=== PATIENT | female | born 1945 | race Caucasian/White ===

== ENCOUNTER 2019-01-16 15:54 | Emergency (ER) | payer OTHER ==
--- NOTE | 2019-01-16 16:12 | EDPHY ---
H & P Stated Complaint: anxiety, depression Time Seen by Provider: 01/16/19 16:04 HPI/ROS: CHIEF COMPLAINT: Referred to ED from [facility] for depression and anxiety HISTORY OF PRESENT ILLNESS: Patient was referred to the emergency department from [facility] for worsening depression and anxiety. The patient reports that she is under a number of life stressors. She denies any suicidal or homicidal ideation. The patient has been using use bar in trazodone at night but is continuing to have worsening symptoms. She denies any drug use. She does report occasional alcohol consumption. The patient does report that she has been experiencing weight loss secondary to her underlying psychiatric condition. She has been working with a primary care provider for evaluation of a possible medical cause of weight loss which has been unrevealing. The patient denies any fever, cough or congestion. She denies any acute complaints of pain. REVIEW OF SYSTEMS: A comprehensive 10 point review of systems is otherwise negative aside from elements mentioned in the history of present illness. Source: Patient Exam Limitations: No limitations - Personal History Current Tetanus/Diphtheria Vaccine: Yes Current Tetanus Diphtheria and Acellular Pertussis (TDAP): Yes - Medical/Surgical History Hx Asthma: No Hx Chronic Respiratory Disease: No Hx Diabetes: No Hx Cardiac Disease: No Hx Renal Disease: No Hx Cirrhosis: No Hx Alcoholism: Yes Hx HIV/AIDS: No Hx Splenectomy or Spleen Trauma: No Other PMH: depression, anxiety, ETOH, - Social History Smoking Status: Never smoked - Physical Exam Exam: General Appearance: Alert, no distress Eyes: Pupils equal and round no pallor or injection ENT, Mouth: Mucous membranes moist Respiratory: There are no retractions, lungs are clear to auscultation Cardiovascular: Regular rate and rhythm Gastrointestinal: Abdomen is soft and nontender, no masses, bowel sounds normal Neurological: A&O, normal motor function, normal sensory exam, normal cranial nerves Skin: Warm and dry, no rashes Musculoskeletal: Neck is supple nontender Extremities: symmetrical, full range of motion Psychiatric: Endorses depression and significant anxiety, patient reports insomnia, patient reports decreased appetite Constitutional: Initial Vital Signs Temperature (C) 36.7 C 01/16/19 15:59 Heart Rate 96 01/16/19 15:59 Respiratory Rate 16 01/16/19 15:59 Blood Pressure 114/91 H 01/16/19 15:59 O2 Sat (%) 95 01/16/19 15:59 O2 Delivery Mode Room Air Allergies/Adverse Reactions: No Known Allergies Allergy (Unverified 01/16/19 15:58) Home Medications: Medication Instructions Recorded Buspar (*) 01/16/19 LORazepam [Ativan] 0.5 mg PO BID PRN #5 tab 01/16/19 Progesterone 01/16/19 traZODone 01/16/19 Medical Decision Making ED Course/Re-evaluation: Patient presents the emergency department with symptoms primarily related to depression and anxiety. The patient has had some chronic weight loss issues and has been working with a primary care provider for evaluation of this on an outpatient basis. The patient was evaluated by the mental health team she does not meet criteria for 72 hr hold but would be considered for voluntary admission. The patient considered this is an option however reports that she has some legal issues to attend to tomorrow. The patient was given a short course of Ativan to assist with management of anxiety on a short-term basis. She was counseled about the risks and benefits of this medication. The patient will be discharged from the emergency department at this point time. Departure - Departure Disposition: Home, Routine, Self-Care Clinical Impression: Anxiety Condition: Good Instructions: Anxiety (ED) Additional Instructions: 1. Please follow-up with your regular physician as scheduled. 2. [facility] would be happy to continue to see you for outpatient management of your depression and anxiety. 3. We would be happy to have you re-evaluated for voluntary admission to our psychiatric facility please know that you can return to the emergency department at any time should you reconsider your decision not to be admitted voluntarily. 4. You have been given a short course of Ativan for management of your anxiety. As discussed in the ED this medication can be have performing and result in withdrawal symptoms with prolonged use. 5. I do recommend that you continue to work with your primary care provider and possibly see a supervisor [facility] for further evaluation of your weight loss. You have been given the number of our on-call supervisor [facility] who would be happy to see you in follow-up. Referrals: Sebastien Bryant MD [Medical Doctor] - As per Instructions
[2019-01-16 18:15] VITALS: BP 169/102
--- NOTE | 2019-01-16 18:26 | ASMTLCPROG ---
Notes Note: Notes: TLC resources request Pt was sent here from [facility]. Pt presents complaining of increased anxiety and depression. Pt stated she has a variety of stressors going on in her life right now. Pt stated she 20 years sobriety and relapsed 2 years ago when she moved to [place]. She quit 1 month ago and has been attending AA meetings. Pt reports she has financial stress and stress from a recent move. Pt states, " I have a hard time getting out of bed jane i have a lot to deal with. I don't have much energy and demarco in my life at this time." Pt stated 2 years ago she moved here from [place] to be close to her son and her grandchildren but then they moved to [place] so now she has very limited support here in [place] and she stated, " I feel isolated. I feel alone." Pt stated she was diagnosed with depression when she was treated for prescription drug abuse and alcoholism in 1994. Pt has two adult children. Pt reports having a close relationship with her younger son but reports having a strained relationship with her older son. Pt reports her older son has bipolar disorder. Pt is denying SI at this time, Pt was asked if she would want to voluntarily admit to the hospital but pt stated she had to work on and "wasn't sure what to do." Pt ultimately decided not to go into the hospital. Pt did not meet 27-65 criteria at this time as she did not appear to be a danger to self/others/gravely disabled. Pt denied SI/HI/intent plan. Pt told this keno writer / runner, " I may come back tomorrow to check in." This keno writer / runner explained that if she did come back she would be evaluated and that we can't guarantee our hospital would have bed availability tomorrow. However, if she needed placement, we would find a hospital for her. This keno writer / runner also informed pt to return to hospital if her symptoms get worse. Pt was given resources for therapist and psychiatrist in [place] who accept medicare. Date Signed: 01/16/2019 06:25 PM Electronically Signed By:Enriqueta Escobar
== END 2019-01-16 18:17 | disposition home or self-care (01) ==
LOC: EEVIPCON 15:54
DX: F41.9 Anxiety disorder, unspecified (principal)

== ENCOUNTER 2019-01-24 14:06 | Inpatient (IN) | payer OTHER | END 2019-01-29 12:07 | disposition home or self-care (01) | LOC: BBEH 22:00 ==